=== PATIENT | female | born 1940 | race Caucasian/White ===

== ENCOUNTER → 2016-09-23 | Day surgery (SDC) | payer OTHER, BC ==
[~2016-09-23] VITALS: Ht 167.6 cm; Wt 49.9 kg
[~2016-09-23] MED LIST: ALIVE WOMEN'S1 EAC1 PO; CALCIUM MAGNES1 EAC2 PO; CURCUMIN1 GM PO; DIGESTIVE ENZY1 EAC3 PO; FISH OIL 1,2001 EAC3 PO; GLUCOSAMIN-CHO1 EACH PO; IRON325 PO; LEVOTHYROXINE0.05 MG PO; OCUVITE TABLET1 EAC1 PO; PROBIOTIC1 EAC1 PO; VITAMIN B-12500 MCG PO; VITAMIN D32000 UNI1 PO
--- NOTE | ~2016-09-23 | O ---
[facility] [place] [address] OPERATIVE REPORT Name: LEBRON PRESSLEY Room #: REG [facility].#: [id number] Admission: 09/23/16 Attend Phys: Esteban Dunn MD Discharge: Date of : 40 Report #: [id number] THIS REPORT FOR: //name// CC: Reilly Mcmahan DATE OF SERVICE: 09/23/2016 CHECK GRADER: None. PREOPERATIVE DIAGNOSIS: Bilateral lower lid entropion. POSTOPERATIVE DIAGNOSIS: Bilateral lower lid entropion. OPERATION PERFORMED: Bilateral lower lid entropion repair. ANESTHESIA: Local with IV sedation. COMPLICATIONS: None. INDICATIONS FOR PROCEDURE: This patient has bilateral lower lid entropion with chronic irritation and discharge. The current procedures are being undertaken in order to improve the patient's level of comfort and visual function. Informed consent was obtained to include but not limited to the loss of vision, bleeding, infection, scarring, failure to improve the problem and need for further surgery. DESCRIPTION OF OPERATION: The patient was taken to the operating room, where 2% Xylocaine with epinephrine mixed with equal parts of 0.75% Marcaine with Wydase was administered transcutaneously and transconjunctivally to each lower lid and lateral canthal area. The patient was then prepped and draped in the usual sterile fashion. A Kathleen clamp was used to clamp the left lateral canthus, following which a sharp canthotomy and cantholysis were performed. Hemostasis was achieved with a monopolar cautery, as it was throughout the case. A tarsal strip was prepared laterally, removing the lash bearing portion of the redundant lid margin and the redundant tarsal plate. A transconjunctival dissection was then undertaken just inferior to the lower border of the tarsal plate. The lower lid retractors were disinserted from the inferior border of the tarsal plate. The lower lid retractors were then advanced and reattached to the anterior surface of the tarsal plate with mattress 5-0 chromic sutures passed transconjunctivally and secured in the infraciliary margin. The tarsal strip was then secured laterally with 2 interrupted 5-0 Prolene sutures. The subcutaneous structures and the skin were then closed with multiple interrupted [address] [address] OPERATIVE REPORT Name: LEBRON PRESSLEY Room #: [facility].#: [id number] Admission: 09/23/16 Attend Phys: Esteban Dunn MD Discharge: Date of : 40 Report #: [id number] 6-0 plain gut sutures so the lateral canthal angle was sharply reformed. The wounds were then cleaned and dressed with ophthalmic antibiotic ointment. The patient was then transported to the recovery area, having tolerated the procedure well with no anesthetic or operative complications being noted. <ELECTRONICALLY SIGNED> By: Esteban Dunn MD 09/30/16 0611 [id number] MD jono Muhammad
[2016-09-23 13:45] VITALS: BP 143/68
== END | disposition home or self-care (01) ==
LOC: OR 05:24
DX: H02.005 Unspecified entropion of left lower eyelid (principal); H02.002 Unspecified entropion of right lower eyelid; E03.9 Hypothyroidism, unspecified; Z98.42 Cataract extraction status, left eye; Z98.41 Cataract extraction status, right eye; Z96.1 Presence of intraocular lens; Z98.890 Other specified postprocedural states
CPT/HCPCS: 50010; 50101; 50386; 50398; 51636; 56527; 56531; 62110; 62850; 70005